=== PATIENT | female | born 1970 | race Caucasian/White ===

== ENCOUNTER 2020-10-23 14:11 | Outpatient (CLI) | payer BC, OTHER ==
[2020-10-23] MEDS ORDERED: ERGO50CA PO (14:33)
[2020-10-23 15:20] LABS: BASOPHILS % (AUTO) 1 % (0-1); EOSINOPHILS % (AUTO) 6 % (1-7); HCG UR SG 1.009 (1.003-1.030); LYMPHOCYTES % (AUTO) 31 % (22-44); MEAN CORPUSCULAR HEMOGLOBIN 31.7 pg (27.0-34.8); MEAN CORPUSCULAR HGB CONC 33.7 g/dL (32.4-35.8); MEAN PLATELET VOLUME 11.3 fL (7.4-10.4); MICROSCOPIC NOT IND; MONOCYTES % (AUTO) 8 % (2-9); NEUTROPHILS % (AUTO) 54 % (42-75); PLATELET COUNT 205 x10^3/uL (130-400); RED CELL DISTRIBUTION WIDTH 13.3 % (9.6-15.2)
== END 2020-10-23 23:59 | disposition home or self-care (01) ==
LOC: STAR 14:11
PROVIDERS: ATTEND Obstetrics & Gynecology
DX: Z01.812 Encounter for preprocedural laboratory examination (principal); Z20.822 Contact with and (suspected) exposure to COVID-19; N83.202 Unspecified ovarian cyst, left side
CPT/HCPCS: 36415; 81003; 81025; 85025; U0003; U0005

== ENCOUNTER 2020-10-29 05:48 | Day surgery (SDC) | payer BC, OTHER ==
[~2020-10-29] VITALS: Ht 165.1 cm; Wt 75.2 kg
[~2020-10-29 05:48] MED LIST: ERGO50CA PO
[2020-10-29 06:15] VITALS: BP 102/67
[2020-10-29] MEDS ORDERED: ACETAMINOPHEN 500 MG TABLET ONE (06:26)
[2020-10-29] MEDS ORDERED: CHLORHEXIDINE 15 ML UDC ONE (06:26)
[2020-10-29] MEDS ORDERED: LACTATED RINGERS 1,000 ML IV SCH (06:30)
[2020-10-29] MEDS ORDERED: CHLORHEXIDINE 15 ML UDC PO ONE (06:30)
[2020-10-29] MEDS ORDERED: ACETAMINOPHEN 500 MG TABLET PO ONE (06:30)
[2020-10-29] MEDS ORDERED: BUPIVACAINE/PF 0.5% ONE (06:47)
[2020-10-29] MEDS ORDERED: EPINEPHRINE 1 MG/ML, 1ML ONE ×2 (06:47→07:33)
[2020-10-29] MEDS ORDERED: LIDOCAINE-MPF 2% ,5ML ONE (07:08)
[2020-10-29] MEDS ORDERED: SODIUM CHLORIDE 0.9% PF 10ML ONE (07:09)
[2020-10-29] MEDS ORDERED: FENTANYL PF 100 MCG/2ML ONE ×2 (07:11→08:06)
[2020-10-29] MEDS ORDERED: MIDAZOLAM 1 MG/ML, 2ML ONE (07:11)
[2020-10-29 07:17] LABS: HCG UR SG 1.023 (1.003-1.030)
[2020-10-29] MEDS ORDERED: EPHEDRINE 50 MG/ML, 1ML IVPush PRN (07:30)
[2020-10-29] MEDS ORDERED: HYDROmorphone 1 MG/ML, 1ML INJ IVPush PRN (07:30)
[2020-10-29] MEDS ORDERED: FENTANYL PF 100 MCG/2ML IV PRN (07:30)
[2020-10-29] MEDS ORDERED: hydrALAzine 20 MG/ML, 1ML IV PRN (07:30)
[2020-10-29] MEDS ORDERED: MEPERIDINE/PF 25MG/0.5ML IVPush PRN (07:30)
[2020-10-29] MEDS ORDERED: OXYcodone 5 MG/5 ML ORAL.SOL UDC PO PRN (07:30)
[2020-10-29] MEDS ORDERED: PROMETHAZINE 25 MG/ML, 1ML IVPush PRN (07:30)
[2020-10-29] MEDS ORDERED: ACETAMINOPHEN 325 MG TABLET PO PRN (07:30)
[2020-10-29] MEDS ORDERED: LABETALOL 5MG/ML, 20ML IV PRN (07:30)
[2020-10-29] MEDS ORDERED: ONDANSETRON 2MG/ML, 2ML IVPush PRN (07:30)
[2020-10-29] MEDS ORDERED: LIDOCAINE/PF 1%, 30ML ONE (07:33)
[2020-10-29] MEDS ORDERED: VANCOMYCIN 500 MG ONE (07:39)
[2020-10-29] MEDS ORDERED: GENTAMICIN 80 MG/2 ML ONE (07:41)
[2020-10-29] MEDS ORDERED: KETOROLAC 30 MG/1 ML ONE (07:45)
[2020-10-29] MEDS ORDERED: GLYCOPYRROLATE 0.2MG/1ML, 5ML ONE (07:51)
[2020-10-29] MEDS ORDERED: ROCURONIUM 10MG/ML,5ML ONE (07:51)
[2020-10-29] MEDS ORDERED: ONDANSETRON 2MG/ML, 2ML ONE (07:51)
[2020-10-29] MEDS ORDERED: CEFAZOLIN 1,000 MG ONE (07:51)
[2020-10-29] MEDS ORDERED: PROPOFOL 10 MG/ML, 20ML ONE (07:51)
[2020-10-29] MEDS ORDERED: SUCCINYLCHOLINE 20 MG/ML, 10ML ONE (07:51)
[2020-10-29] MEDS ORDERED: NEOSTIGMINE 1 MG/ML, 10ML ONE (07:51)
[2020-10-29] MEDS ORDERED: DEXAMETHASONE 4 MG/ML, 1ML ONE (07:51)
[2020-10-29] MEDS ORDERED: GENTAMICIN 80 MG/2 ML IM ONE (08:07)
[2020-10-29] MEDS ORDERED: FLUORESCEIN SODIUM 500 MG/5 ML ONE (08:48)
== END 2020-10-29 12:05 | disposition home or self-care (01) ==
LOC: OUT 05:48
PROVIDERS: ATTEND Obstetrics & Gynecology
DX: Z30.2 Encounter for sterilization (principal); N83.12 Corpus luteum cyst of left ovary; N39.3 Stress incontinence (female) (male); J45.909 Unspecified asthma, uncomplicated; Z79.899 Other long term (current) drug therapy; Z90.49 Acquired absence of other specified parts of digestive tract; Z97.5 Presence of (intrauterine) contraceptive device
CPT/HCPCS: 49322; 57288; 58670; 81025; 88302; 88304; C1771; J0171; J0330; J0690; J1100; J1580; J1885; J2250; J2405; J2704; J2710; J3010; J3370; J7120